=== PATIENT | female | born 1945 | race Hispanic/Latino ===

== ENCOUNTER 2018-10-05 19:16 | Emergency (ER) | payer MEDICARE ==
[~2018-10-05] VITALS: Ht 160 cm; Wt 76.2 kg
[2018-10-05] MEDS ORDERED: SODIUM CHLORIDE 0.9% 1000ML 1,000 ML IV SCH (19:45)
--- NOTE | 2018-10-05 20:25 | Diagnostic Imaging Report ---
EXAMINATION: CXR 2 VIEW - HOPD INDICATION: Abdominal pain. COMPARISON: None FINDINGS: PA and lateral views TUBES and LINES: None. LUNGS: Lungs are well inflated. Lungs are clear. There is no evidence of pneumonia or pulmonary edema. PLEURA: No pleural effusion or pneumothorax. HEART AND MEDIASTINUM: The cardiomediastinal silhouette is unremarkable. BONES AND SOFT TISSUES: No acute osseous lesion. Soft tissues are unremarkable. UPPER ABDOMEN: No free air under the diaphragm. IMPRESSION: No acute thoracic abnormality. Signed by: DR. Aquilino Weeks MD on 10/05/2018 8:21 PM
[2018-10-05] MEDS ORDERED: ONDANSETRON HCL INJ 2MG/ML 2ML 2 MG/ML VIAL IV STA (20:34)
--- NOTE | 2018-10-05 21:56 | Diagnostic Imaging Report ---
EXAM: CT Abdomen and Pelvis WITH contrast INDICATION: Abdominal pain. COMPARISON: None. TECHNIQUE: Abdomen and pelvis were scanned utilizing a multidetector helical scanner from the lung base to the pubic symphysis after administration of IV contrast. Coronal and sagittal reformations were obtained. Routine protocol was performed. Scan was performed when during portal venous phase. IV CONTRAST: 100 mL of Isovue-370 ORAL CONTRAST: Water COMPLICATIONS: None RADIATION DOSE: Total DLP: 773.2 mGy*cm Estimated effective dose: (DLP x 0.015 x size factor) mSv Dose modulation, iterative reconstruction, and/or weight based adjustment of the mA/kV was utilized to reduce the radiation dose to as low as reasonably achievable. FINDINGS: LINES and TUBES: None. LOWER THORAX: There is bibasilar atelectasis. HEPATOBILIARY: No focal hepatic lesions. No biliary ductal dilation. GALLBLADDER: Cholecystectomy SPLEEN: No splenomegaly. PANCREAS: No focal masses or ductal dilatation. ADRENALS: No adrenal nodules KIDNEYS/URETERS: Kidneys enhance symmetrically. No hydronephrosis. Ill-defined 1.4 cm heterogeneously hypoattenuating lesion in the interpolar region of the left kidney (series 2 image 41). No stones. GI TRACT: Three 0.7 to 0.8 cm small exophytic nodules along the anterior gastric wall (series 2 image 35, 37, and 39). No abnormal distention, wall thickening, or evidence of bowel obstruction. PELVIC ORGANS/BLADDER: Right ovarian 2 cm fluid attenuating lesion. LYMPH NODES: No lymphadenopathy. VESSELS: There is moderate atherosclerotic disease in the aorta and major arterial branches. PERITONEUM / RETROPERITONEUM: No free air or fluid. BONES: There are degenerative changes in the lumbar spine. SOFT TISSUES: Unremarkable. IMPRESSION: 1. No acute abnormalities. 2. Left renal 1.4 cm heterogeneously hypoattenuating lesion may represent a complex cyst or solid lesion. Nonemergent CT or MRI without and with contrast may be obtained for further characterization. 3. A few subcentimeter exophytic nodules along the anterior gastric wall may represent submucosal lesion such as GIST, schwannoma, or leiomyoma but are indeterminate. Consider GI consultation. Signed by: DR. Aquilino Weeks MD on 10/05/2018 9:53 PM
[2018-10-05] MEDS ORDERED: LEVOFLOXACIN 750MG/D5W 150ML 150 ML IV ONE (22:00)
== END 2018-10-06 | disposition home or self-care (01) ==
LOC: FSED 19:16
DX: R10.10 Upper abdominal pain, unspecified (principal); R11.2 Nausea with vomiting, unspecified; N10 Acute pyelonephritis; N12 Tubulo-interstitial nephritis, not specified as acute or chronic
CPT/HCPCS: 71046; 74177; 80048; 80076; 81003; 83518; 83605; 85025; 87040; 87086; 87186; 87400; 93005; 99284; J7030